=== PATIENT | female | born 1955 | race African-American/Black ===

== ENCOUNTER 2017-12-19 19:31 | Emergency (ER) | payer MEDICARE, MEDICAID ==
[~2017-12-19] VITALS: Ht 170.2 cm; Wt 89.2 kg
[~2017-12-19 19:31] MED LIST: AGGR PO; APIX5TAB PO; ATOR10TA69 PO; BISA-81 PO; CALC0.253 PO; FLUT9.9S NS; FOLI1CAP6 PO; FURO-151 PO; HYDR-4134 PO; KEPP500 PO; LANTUS SUBCUT; LEVO250T2 PO; LISI-604 PO; METO100T16 PO; PHEN100C4 PO; SEVE800T8 PO
[2017-12-19 22:27] LABS: EOSINOPHILS % 6.3 % (0.0-5.0); HEMATOCRIT. 24.3 % (36.0-48.0); HEMOGLOBIN. 8.2 g/dL (12.0-16.0); LYMPHOCYTES % 15.4 % (20.0-50.0); MEAN CORPUSCULAR HEMOGLOBIN 34.5 pg (28.0-32.0); MEAN CORPUSCULAR VOLUME 101.7 fL (81.0-99.0); MEAN PLATELET VOLUME 7.9 fl (7.4-10.4); MONOCYTES % 8.3 % (2.0-8.0); PLATELET 164 x1000/uL (130-400); RED BLOOD CELL COUNT 2.38 mill/uL (4.2-5.4); RED CELL DISTRIBUTION WIDTH 14.8 % (11.6-14.6)
[2017-12-19 22:33] LABS: INR 1.1; PROTHROMBIN TIME 11.9 sec (9.4-11.6)
[2017-12-19] MEDS ORDERED: NITROGLYCERIN 0.4MG/HR PATCH TOP ONE (23:15)
[2017-12-19] MEDS ORDERED: DILTIAZEM HCL 180MG CAPSULE CD 24HR PO ONE (23:15)
[2017-12-20] MEDS ORDERED: ACETAMINOPHEN 325MG TABLET PO ONE
[2017-12-20 00:17] VITALS: BP 153/71
== END 2017-12-20 00:26 | disposition home or self-care (01) ==
LOC: ER 21:13
DX: D64.9 Anemia, unspecified (principal); E78.00 Pure hypercholesterolemia, unspecified; E11.22 Type 2 diabetes mellitus with diabetic chronic kidney disease; N18.6 End stage renal disease; Z99.2 Dependence on renal dialysis; Z86.73 Personal history of transient ischemic attack (TIA), and cerebral infarction without residual deficits; Z79.82 Long term (current) use of aspirin
CPT/HCPCS: 36415; 71045; 80048; 85025; 85610; 86850; 86900; 93005; 99285

== ENCOUNTER 2018-10-15 15:16 | Inpatient (IN) | payer MEDICARE, MEDICAID ==
[~2018-10-15] VITALS: Ht 170.2 cm; Wt 76.7 kg
[2018-10-15] MEDS ORDERED: ONDANSETRON HCL 4MG/2ML INJ IV STA (15:55)
[2018-10-15] MEDS ORDERED: SODIUM CHLORIDE 0.9% 1,000 ML IV ONE (15:55)
[2018-10-15] MEDS ORDERED: MORPHINE SULFATE 4 MG/ML CPJ (NOT FOR IM USE) IV STA (15:55)
[2018-10-15 17:33] LABS: HEMATOCRIT. 35.8 % (36.0-48.0); HEMOGLOBIN. 11.8 g/dL (12.0-16.0); MEAN CORPUSCULAR HEMOGLOBIN 33.7 pg (28.0-32.0); MEAN CORPUSCULAR VOLUME 102.4 fL (81.0-99.0); MEAN PLATELET VOLUME 8.9 fl (7.4-10.4); PLATELET 148 x1000/uL (130-400)
[2018-10-15 17:37] LABS: CHLORIDE 102 mEq/L (98-107)
[2018-10-15 17:38] LABS: INR 1.2; PROTHROMBIN TIME 12.3 sec (9.1-11.1)
[2018-10-15 18:04] LABS: PLATELET ESTIMATE NORMAL
[2018-10-15 22:20] VITALS: BP 128/50
[2018-10-16] VITALS (10 sets, daily range): BP systolic 81–120; BP diastolic 33–55
[2018-10-16] MEDS ORDERED: DEXTROSE 50% WATER 50ML SYRINGE IV PRN (00:45)
[2018-10-16] MEDS: HYDROCODONE/ACETAMINOPHEN 5/325MG TABLET PO PRN ×2 (04:58→18:49)
[2018-10-16] MEDS: BLOOD SUGAR DIAGNOSTIC STRIP TEST SCH ×4 (06:52→21:00)
[2018-10-16 07:14] LABS: MEAN CORPUSCULAR HEMOGLOBIN 34.1 pg (28.0-32.0); MEAN CORPUSCULAR VOLUME 101.8 fL (81.0-99.0); MEAN PLATELET VOLUME 9.3 fl (7.4-10.4); PLATELET 149 x1000/uL (130-400); RED BLOOD CELL COUNT 3.24 mill/uL (4.2-5.4); RED CELL DISTRIBUTION WIDTH 15.1 % (11.6-14.6)
[2018-10-16] MEDS: INSULIN LISPRO 100 UNITS/ML SUBCUT SCH ×4 (07:50→22:12)
[2018-10-16] MEDS ORDERED: SEVELAMER CARBONATE 1600 MG PO SCH (09:00)
[2018-10-16] MEDS ORDERED: LISINOPRIL 20MG TABLET PO SCH (09:00)
[2018-10-16] MEDS ORDERED: MEDICATION NOT ON FORMULARY EA (Calcitriol 1 CAP) PO SCH (09:00)
[2018-10-16] MEDS: HYDRALAZINE HCL 25MG TABLET PO SCH ×2 (09:00→21:00)
[2018-10-16] MEDS ORDERED: MEDICATION NOT ON FORMULARY EA (Apixaban (Eliquis) 5 MG) PO SCH (09:00)
[2018-10-16] MEDS ORDERED: MEDICATION NOT ON FORMULARY EA (Hydralazine Hcl 1 TAB) PO SCH (09:00)
[2018-10-16] MEDS ORDERED: MEDICATION NOT ON FORMULARY EA (Lisinopril 1 TAB) PO SCH (09:00)
[2018-10-16] MEDS: ALBUMIN HUMAN 25GM/100ML (25%) IV SCH ×2 (10:53→10:56)
[2018-10-16] MEDS ORDERED: LEVOFLOXACIN 250MG TABLET PO SCH (11:00)
[2018-10-16] MEDS: CALCITRIOL 0.25MCG CAPSULE PO SCH (11:39)
[2018-10-16] MEDS: PHENYTOIN SODIUM EXTENDED 100MG CAPSULE PO SCH ×2 (11:39→17:52)
[2018-10-16] MEDS: METRONIDAZOLE 500MG TABLET PO SCH ×2 (11:39→23:56)
[2018-10-16] MEDS: SEVELAMER CARBONATE 800 MG TABLET PO SCH ×3 (11:39→18:13)
[2018-10-16] MEDS: APIXABAN 5 MG TABLET PO SCH ×2 (11:40→22:10)
[2018-10-16] MEDS: LEVETIRACETAM 500MG TABLET PO SCH ×2 (11:40→22:10)
[2018-10-16 18:16] LABS: PLATELET ESTIMATE NORMAL
[2018-10-16] MEDS: PIPERACILLIN/TAZOBACTAM 2.25 G in DEXTROSE 5% WATER 50 ML IV SCH (18:47)
[2018-10-16] MEDS: ONDANSETRON HCL 4MG/2ML INJ IV PRN (18:54)
[2018-10-16] MEDS ORDERED: ENOXAPARIN 30MG/0.3ML SYR SUBCUT SCH (21:00)
[2018-10-16] MEDS: ATORVASTATIN CALCIUM 10MG TABLET PO SCH (22:10)
[2018-10-17] VITALS (58 sets, daily range): BP systolic 75–150; BP diastolic 37–102
[2018-10-17] MEDS: PIPERACILLIN/TAZOBACTAM 2.25 G in DEXTROSE 5% WATER 50 ML IV SCH ×2 (04:53→10:18)
[2018-10-17] MEDS: METRONIDAZOLE 500MG TABLET PO SCH ×3 (06:12→21:41)
[2018-10-17 06:52] LABS: HEMATOCRIT. 27.6 % (36.0-48.0); HEMOGLOBIN. 9.4 g/dL (12.0-16.0); MEAN CORPUSCULAR HEMOGLOBIN 34.6 pg (28.0-32.0); MEAN CORPUSCULAR VOLUME 101.1 fL (81.0-99.0); MEAN PLATELET VOLUME 9.4 fl (7.4-10.4); PLATELET 126 x1000/uL (130-400); RED BLOOD CELL COUNT 2.73 mill/uL (4.2-5.4); RED CELL DISTRIBUTION WIDTH 15.1 % (11.6-14.6)
[2018-10-17 07:37] LABS: PHOSPHORUS 4.8 mg/dL (2.5-4.9)
[2018-10-17] MEDS: BLOOD SUGAR DIAGNOSTIC STRIP TEST SCH ×4 (07:40→21:34)
[2018-10-17] MEDS: SEVELAMER CARBONATE 800 MG TABLET PO SCH (08:13)
[2018-10-17] MEDS: INSULIN LISPRO 100 UNITS/ML SUBCUT SCH ×5 (08:18→21:51)
[2018-10-17] MEDS ORDERED: SODIUM CHLORIDE 0.9% 250 ML IV ONE (08:30)
[2018-10-17] MEDS: HYDRALAZINE HCL 25MG TABLET PO SCH (09:00)
[2018-10-17] MEDS ORDERED: VANCOMYCIN 1500MG in DEXTROSE 5% WATER 250ML IV SCH (10:00)
[2018-10-17] MEDS: APIXABAN 5 MG TABLET PO SCH (10:18)
[2018-10-17] MEDS: CALCITRIOL 0.25MCG CAPSULE PO SCH (10:18)
[2018-10-17] MEDS: PHENYTOIN SODIUM EXTENDED 100MG CAPSULE PO SCH ×2 (10:19→17:25)
[2018-10-17] MEDS: LEVETIRACETAM 500MG TABLET PO SCH ×2 (10:19→21:41)
[2018-10-17] MEDS ORDERED: POTASSIUM CHLORIDE 20MEQ/PACKET PO SCH (10:45)
[2018-10-17] MEDS: SODIUM CHLORIDE 0.9% 1,000 ML IV SCH ×2 (11:49→21:52)
[2018-10-17] MEDS ORDERED: NOREPINEPHRINE 8 MG in DEXT 5% WATER 242 ML IV PRN (13:30)
[2018-10-17 14:20] LABS: PLATELET ESTIMATE SLIGHTLY DECREASED
[2018-10-17] MEDS ORDERED: NOREPINEPHRINE 16 MG in DEXT 5% WATER 234 ML IV PRN (17:24)
[2018-10-17] MEDS: PIPERACILLIN/TAZ 2.25G PREMIX 50 ML IV SCH (17:25)
[2018-10-17] MEDS: ATORVASTATIN CALCIUM 10MG TABLET PO SCH (21:41)
[2018-10-18] VITALS (86 sets, daily range): BP systolic 85–162; BP diastolic 38–100
[2018-10-18] MEDS: HYDROCODONE/ACETAMINOPHEN 5/325MG TABLET PO PRN ×2 (02:51→09:31)
[2018-10-18] MEDS: PIPERACILLIN/TAZ 2.25G PREMIX 50 ML IV SCH ×3 (02:56→18:20)
[2018-10-18 05:40] LABS: BASOPHILS % 0.4 % (0.0-2.0); EOSINOPHILS % 14.2 % (0.0-5.0); HEMATOCRIT. 33.7 % (36.0-48.0); HEMOGLOBIN. 11.3 g/dL (12.0-16.0); LYMPHOCYTES % 7.9 % (20.0-50.0); MEAN CORPUSCULAR HEMOGLOBIN 34.1 pg (28.0-32.0); MEAN CORPUSCULAR VOLUME 101.8 fL (81.0-99.0); MEAN PLATELET VOLUME 9.3 fl (7.4-10.4); MONOCYTES % 10.5 % (2.0-8.0); PLATELET 165 x1000/uL (130-400); RED BLOOD CELL COUNT 3.31 mill/uL (4.2-5.4); RED CELL DISTRIBUTION WIDTH 15.1 % (11.6-14.6)
[2018-10-18 05:53] LABS: PHOSPHORUS 5.3 mg/dL (2.5-4.9)
[2018-10-18] MEDS: BLOOD SUGAR DIAGNOSTIC STRIP TEST SCH ×4 (06:37→21:25)
[2018-10-18] MEDS: METRONIDAZOLE 500MG TABLET PO SCH ×2 (06:40→13:08)
[2018-10-18] MEDS: SODIUM CHLORIDE 0.9% 1,000 ML IV SCH ×2 (06:40→18:19)
[2018-10-18] MEDS: INSULIN LISPRO 100 UNITS/ML SUBCUT SCH ×4 (06:49→21:53)
[2018-10-18] MEDS: PHENYTOIN SODIUM EXTENDED 100MG CAPSULE PO SCH ×2 (09:30→18:19)
[2018-10-18] MEDS: LEVETIRACETAM 500MG TABLET PO SCH ×2 (09:30→21:24)
[2018-10-18] MEDS: CALCITRIOL 0.25MCG CAPSULE PO SCH (09:30)
[2018-10-18] MEDS: ONDANSETRON HCL 4MG/2ML INJ IV PRN (09:31)
[2018-10-18] MEDS ORDERED: PHENYTOIN SODIUM 600 MG in SODIUM CHLORIDE 0.9% 100 ML IV SCH (12:00)
[2018-10-18] MEDS: VANCOMYCIN HCL 1000 MG/20 ML ORAL PO SCH ×2 (12:39→18:20)
[2018-10-18 13:07] LABS: T4 FREE 0.79 ng/dL (0.76-1.46)
[2018-10-18 13:18] LABS: FOLIC ACID (FOLATE) SERUM >20 ng/mL ng/mL (>5.38)
[2018-10-18 13:30] LABS: VITAMIN B12 SERUM >2000 pg/mL pg/mL (211-911)
[2018-10-18] MEDS ORDERED: POTASSIUM CHLORIDE INJ 60 MEQ in DEXT 5% WATER 500 ML IV SCH (15:30)
[2018-10-18] MEDS: ATORVASTATIN CALCIUM 10MG TABLET PO SCH (21:24)
[2018-10-19] VITALS (33 sets, daily range): BP systolic 90–163; BP diastolic 39–77
[2018-10-19] MEDS: VANCOMYCIN HCL 1000 MG/20 ML ORAL PO SCH ×4 (00:58→18:00)
[2018-10-19] MEDS: PIPERACILLIN/TAZ 2.25G PREMIX 50 ML IV SCH ×3 (04:22→18:11)
[2018-10-19] MEDS: HYDROCODONE/ACETAMINOPHEN 5/325MG TABLET PO PRN (04:22)
[2018-10-19 05:33] LABS: BASOPHILS % 0.9 % (0.0-2.0); EOSINOPHILS % 13.3 % (0.0-5.0); HEMATOCRIT. 34.2 % (36.0-48.0); HEMOGLOBIN. 11.2 g/dL (12.0-16.0); LYMPHOCYTES % 10.3 % (20.0-50.0); MEAN CORPUSCULAR HEMOGLOBIN 33.6 pg (28.0-32.0); MEAN CORPUSCULAR VOLUME 102.5 fL (81.0-99.0); MEAN PLATELET VOLUME 8.6 fl (7.4-10.4); MONOCYTES % 10.3 % (2.0-8.0); NEUTROPHILS % 65.2 % (40.0-76.0); PLATELET 160 x1000/uL (130-400); RED BLOOD CELL COUNT 3.33 mill/uL (4.2-5.4); RED CELL DISTRIBUTION WIDTH 15.1 % (11.6-14.6)
[2018-10-19 05:36] LABS: CHLORIDE 103 mEq/L (98-107)
[2018-10-19 05:45] LABS: PHOSPHORUS 5.7 mg/dL (2.5-4.9)
[2018-10-19] MEDS: BLOOD SUGAR DIAGNOSTIC STRIP TEST SCH ×4 (07:50→21:12)
[2018-10-19] MEDS: INSULIN LISPRO 100 UNITS/ML SUBCUT SCH ×4 (08:20→21:00)
[2018-10-19] MEDS: METRONIDAZOLE 500MG TABLET PO SCH ×2 (09:00→21:09)
[2018-10-19 09:20] LABS: BG BASE EXCESS -8.4 mmol/L (-2.0-2.0); BG CARBOXYHEMOGLOBIN 0.1 % (0.5-1.5); BG DEOXYHEMOGLOBIN 3.3 % (0.0-5.0); BG FRACTION INSPIRED OXYGEN 28; BG HCO3 ACT 18.3 mmol/L (22.0-26.0); BG METHEMOGLOBIN 0.3 % (0.0-1.5); BG OXYGEN SATURATION 96.7 % (92.0-98.5); BG OXYHEMOGLOBIN 96.3 % (94.0-97.0); BG PCO2 42.1 mmHg (35.0-45.0); BG PH 7.255 (7.350-7.450); BG PO2 106.6 mmHg (75.0-100.0); BG SAMPLE SITE RIGHT RADIAL; BG TOTAL HEMOGLOBIN 11.2 g/dL (12.0-18.0); BG VENT MODE NASAL CANNULA
[2018-10-19] MEDS: LEVETIRACETAM 500MG TABLET PO SCH ×2 (09:23→21:12)
[2018-10-19] MEDS: CALCITRIOL 0.25MCG CAPSULE PO SCH (09:23)
[2018-10-19] MEDS: PHENYTOIN SODIUM EXTENDED 100MG CAPSULE PO SCH ×2 (09:24→17:40)
[2018-10-19] MEDS ORDERED: VANCOMYCIN 1250MG in DEXTROSE 5% WATER 250ML IV NR (15:00)
[2018-10-19] MEDS: SODIUM CHLORIDE 0.9% 1,000 ML IV SCH (17:40)
[2018-10-19] MEDS: ATORVASTATIN CALCIUM 10MG TABLET PO SCH (21:09)
[2018-10-20] VITALS: BP 134/57
[2018-10-20] MEDS: PIPERACILLIN/TAZ 2.25G PREMIX 50 ML IV SCH ×3 (02:00→18:00)
[2018-10-20 04:00] VITALS: BP 161/75
[2018-10-20] MEDS: BLOOD SUGAR DIAGNOSTIC STRIP TEST SCH ×4 (07:10→21:16)
[2018-10-20] MEDS: INSULIN LISPRO 100 UNITS/ML SUBCUT SCH ×4 (07:40→21:00)
[2018-10-20] MEDS: CALCITRIOL 0.25MCG CAPSULE PO SCH (09:00)
[2018-10-20] MEDS: LEVETIRACETAM 500MG TABLET PO SCH ×2 (10:26→21:27)
[2018-10-20] MEDS: METRONIDAZOLE 500MG TABLET PO SCH ×2 (10:26→21:27)
[2018-10-20] MEDS: PHENYTOIN SODIUM EXTENDED 100MG CAPSULE PO SCH ×2 (10:26→18:11)
[2018-10-20 11:36] LABS: BG BASE EXCESS -4.2 mmol/L (-2.0-2.0); BG CARBOXYHEMOGLOBIN 0.7 % (0.5-1.5); BG DEOXYHEMOGLOBIN 6.8 % (0.0-5.0); BG FRACTION INSPIRED OXYGEN 21; BG HCO3 ACT 20.8 mmol/L (22.0-26.0); BG METHEMOGLOBIN 0.1 % (0.0-1.5); BG OXYGEN SATURATION 93.1 % (92.0-98.5); BG OXYHEMOGLOBIN 92.4 % (94.0-97.0); BG PCO2 38.1 mmHg (35.0-45.0); BG PH 7.356 (7.350-7.450); BG PO2 72.8 mmHg (75.0-100.0); BG SAMPLE SITE RIGHT RADIAL; BG VENT MODE ROOM AIR
[2018-10-20 11:46] VITALS: BP 167/87
[2018-10-20 12:37] VITALS: BP 149/78
[2018-10-20 16:00] VITALS: BP_SYST 138; BP_SYST 150; BP_DIAS 78; BP_DIAS 83
[2018-10-20 20:00] VITALS: BP 153/78
[2018-10-20] MEDS: ATORVASTATIN CALCIUM 10MG TABLET PO SCH (21:27)
[2018-10-20 23:02] LABS: EOSINOPHILS % 11.4 % (0.0-5.0); HEMATOCRIT. 30.1 % (36.0-48.0); HEMOGLOBIN. 10.1 g/dL (12.0-16.0); LYMPHOCYTES % 12.1 % (20.0-50.0); MEAN CORPUSCULAR VOLUME 101.1 fL (81.0-99.0); MEAN PLATELET VOLUME 7.7 fl (7.4-10.4); MONOCYTES % 9.7 % (2.0-8.0); NEUTROPHILS % 65.8 % (40.0-76.0); PLATELET 203 x1000/uL (130-400); RED BLOOD CELL COUNT 2.98 mill/uL (4.2-5.4); RED CELL DISTRIBUTION WIDTH 14.7 % (11.6-14.6)
[2018-10-20 23:16] LABS: PHOSPHORUS 3.6 mg/dL (2.5-4.9)
[2018-10-21] VITALS: BP 150/71
[2018-10-21] MEDS: VANCOMYCIN HCL 1000 MG/20 ML ORAL PO SCH ×4 (00:22→17:58)
[2018-10-21] MEDS: HYDROCODONE/ACETAMINOPHEN 5/325MG TABLET PO PRN (00:24)
[2018-10-21] MEDS: PIPERACILLIN/TAZ 2.25G PREMIX 50 ML IV SCH ×3 (03:13→17:52)
[2018-10-21 04:00] VITALS: BP 132/66
[2018-10-21 04:24] LABS: OVA & PARASITE EXAM Final report (.)
[2018-10-21] MEDS: ONDANSETRON HCL 4MG/2ML INJ IV PRN (05:25)
[2018-10-21] MEDS: BLOOD SUGAR DIAGNOSTIC STRIP TEST SCH ×4 (06:35→20:52)
[2018-10-21] MEDS: INSULIN LISPRO 100 UNITS/ML SUBCUT SCH ×4 (06:36→20:51)
[2018-10-21 06:51] LABS: HEMATOCRIT. 31.4 % (36.0-48.0); HEMOGLOBIN. 10.5 g/dL (12.0-16.0); LYMPHOCYTES % 13.7 % (20.0-50.0); MEAN CORPUSCULAR VOLUME 101.4 fL (81.0-99.0); MEAN PLATELET VOLUME 8.2 fl (7.4-10.4); MONOCYTES % 9.7 % (2.0-8.0); NEUTROPHILS % 64.6 % (40.0-76.0); PLATELET 218 x1000/uL (130-400); RED CELL DISTRIBUTION WIDTH 14.6 % (11.6-14.6)
[2018-10-21 07:06] LABS: PHOSPHORUS 3.7 mg/dL (2.5-4.9)
[2018-10-21 08:00] VITALS: BP 126/62
[2018-10-21] MEDS: PHENYTOIN SODIUM EXTENDED 100MG CAPSULE PO SCH ×2 (09:15→17:52)
[2018-10-21] MEDS: CALCITRIOL 0.25MCG CAPSULE PO SCH (09:15)
[2018-10-21] MEDS: METRONIDAZOLE 500MG TABLET PO SCH ×2 (09:16→20:43)
[2018-10-21] MEDS: LEVETIRACETAM 500MG TABLET PO SCH ×2 (09:16→20:43)
[2018-10-21 11:53] VITALS: BP 154/76
[2018-10-21 16:00] VITALS: BP 117/60
[2018-10-21 20:00] VITALS: BP 135/62
[2018-10-21] MEDS: ATORVASTATIN CALCIUM 10MG TABLET PO SCH (20:43)
[2018-10-21] MEDS: ACETAMINOPHEN 325MG TABLET PO PRN (20:43)
[2018-10-22] VITALS: BP 153/75
[2018-10-22] MEDS: VANCOMYCIN HCL 1000 MG/20 ML ORAL PO SCH ×3 (00:09→11:38)
[2018-10-22] MEDS: PIPERACILLIN/TAZ 2.25G PREMIX 50 ML IV SCH ×2 (02:03→10:12)
[2018-10-22 04:00] VITALS: BP 129/57
[2018-10-22] MEDS: BLOOD SUGAR DIAGNOSTIC STRIP TEST SCH ×3 (07:10→17:10)
[2018-10-22] MEDS: INSULIN LISPRO 100 UNITS/ML SUBCUT SCH ×3 (07:40→17:37)
[2018-10-22 08:00] VITALS: BP 143/58
[2018-10-22 08:10] LABS: BASOPHILS % 1.3 % (0.0-2.0); EOSINOPHILS % 11.2 % (0.0-5.0); HEMATOCRIT. 30.1 % (36.0-48.0); HEMOGLOBIN. 10.2 g/dL (12.0-16.0); LYMPHOCYTES % 17.1 % (20.0-50.0); MEAN CORPUSCULAR HEMOGLOBIN 34.5 pg (28.0-32.0); MEAN CORPUSCULAR VOLUME 101.5 fL (81.0-99.0); MEAN PLATELET VOLUME 7.6 fl (7.4-10.4); MONOCYTES % 10.5 % (2.0-8.0); NEUTROPHILS % 59.9 % (40.0-76.0); PLATELET 215 x1000/uL (130-400); RED BLOOD CELL COUNT 2.97 mill/uL (4.2-5.4); RED CELL DISTRIBUTION WIDTH 14.7 % (11.6-14.6)
[2018-10-22] MEDS: METRONIDAZOLE 500MG TABLET PO SCH (08:45)
[2018-10-22] MEDS: PHENYTOIN SODIUM EXTENDED 100MG CAPSULE PO SCH ×2 (08:45→17:37)
[2018-10-22] MEDS: LEVETIRACETAM 500MG TABLET PO SCH (08:45)
[2018-10-22 08:54] LABS: PHOSPHORUS 2.9 mg/dL (2.5-4.9)
[2018-10-22] MEDS: CALCITRIOL 0.25MCG CAPSULE PO SCH (09:14)
[2018-10-22 12:00] VITALS: BP 136/58
[2018-10-22 14:42] VITALS: BP 136/58
[2018-10-22 16:00] VITALS: BP 159/76
[2018-10-22] MEDS: ACETAMINOPHEN 325MG TABLET PO PRN (17:37)
== END 2018-10-22 19:05 | disposition home health service (06) | DRG 871 ==
LOC: ER 15:16 → 6WST 18:00 → EDBEDREQTM 18:03 → EDBEDREQ 18:03 → ENRESERV 21:19 → 3WST 10-16 13:50 → CVICU 10-17 13:10 → 8WST 10-19 14:01
PROVIDERS: ADMIT Internal Medicine Nephrology; ATTEND Internal Medicine Nephrology
PROC: 5A1D70Z Performance of Urinary Filtration, Intermittent, Less than 6 Hours Per Day (ICD-10-PCS; 2018-10-16)
PROC: 5A1D70Z Performance of Urinary Filtration, Intermittent, Less than 6 Hours Per Day (ICD-10-PCS; 2018-10-19)
PROC: 5A1D70Z Performance of Urinary Filtration, Intermittent, Less than 6 Hours Per Day (ICD-10-PCS; 2018-10-21)
PROC: 4A00X4Z Measurement of Central Nervous Electrical Activity, External Approach (ICD-10-PCS; principal; 2018-10-22)
DX: A41.9 Sepsis, unspecified organism (principal); N18.6 End stage renal disease; E43 Unspecified severe protein-calorie malnutrition; G92 Toxic encephalopathy; A04.71 Enterocolitis due to Clostridium difficile, recurrent; E87.2 Acidosis; I12.0 Hypertensive chronic kidney disease with stage 5 chronic kidney disease or end stage renal disease; N25.81 Secondary hyperparathyroidism of renal origin; N17.9 Acute kidney failure, unspecified; E86.0 Dehydration; D53.9 Nutritional anemia, unspecified; D63.1 Anemia in chronic kidney disease; R65.20 Severe sepsis without septic shock; D69.6 Thrombocytopenia, unspecified; D25.9 Leiomyoma of uterus, unspecified; E11.22 Type 2 diabetes mellitus with diabetic chronic kidney disease; G43.909 Migraine, unspecified, not intractable, without status migrainosus; I95.9 Hypotension, unspecified; E11.43 Type 2 diabetes mellitus with diabetic autonomic (poly)neuropathy; E87.6 Hypokalemia; E78.00 Pure hypercholesterolemia, unspecified; E78.5 Hyperlipidemia, unspecified; K31.84 Gastroparesis; G40.909 Epilepsy, unspecified, not intractable, without status epilepticus; Z99.2 Dependence on renal dialysis; Z82.49 Family history of ischemic heart disease and other diseases of the circulatory system; Z83.3 Family history of diabetes mellitus; Z86.73 Personal history of transient ischemic attack (TIA), and cerebral infarction without residual deficits; Z68.26 Body mass index [BMI] 26.0-26.9, adult; Z79.82 Long term (current) use of aspirin; Z79.899 Other long term (current) drug therapy
CPT/HCPCS: 36415; 36600; 70551; 71045; 74176; 80048; 80185; 80202; 82140; 82375; 82607; 82746; 82805; 82962; 83036; 83735; 84100; 84134; 84439; 84443; 84481; 87015; 87045; 87177; 87209; 87427; 87449; 87493; 92610; 93005; 93306; 93970; 96361; 96374; 96375; 97162; 99285; C1893; J1165; J1815; J2270; J2405; J2543; J3370; J3480; J3490; J7030; J7050; J7060; P9047; A4315

== ENCOUNTER 2018-12-10 12:30 | Inpatient (IN) | payer MEDICARE, MEDICAID ==
[~2018-12-10] VITALS: Ht 167.6 cm; Wt 80.7 kg
[2018-12-10] MEDS ORDERED: PIPERACILLIN/TAZ 3.375G PREMIX 50 ML IV ONE (13:15)
[2018-12-10] MEDS ORDERED: VANCOMYCIN 1 G PREMIX 200 ML IV ONE (13:15)
[2018-12-10] MEDS ORDERED: SODIUM CHLORIDE 0.9% 1000ML BAG (SEPSIS BOLUS) IV ONE (13:15)
[2018-12-10] MEDS ORDERED: ACETAMINOPHEN 325MG TABLET PO ONE (13:15)
[2018-12-10] MEDS ORDERED: METRONIDAZOLE 500 MG PREMIX 100 ML IV ONE (13:15)
[2018-12-10] MEDS ORDERED: NOREPINEPHRINE 4 MG in DEXT 5% WATER 246 ML IV ONE ×3 (13:45→23:15)
[2018-12-10] MEDS ORDERED: NOREPINEPHRINE 4MG/250ML PMX 250 ML IV ONE ×2 (13:53→19:45)
[2018-12-10 14:03] LABS: HEMATOCRIT. 37.4 % (36.0-48.0); MEAN CORPUSCULAR HEMOGLOBIN 31.6 pg (28.0-32.0); MEAN CORPUSCULAR VOLUME 98.2 fL (81.0-99.0); MEAN PLATELET VOLUME 10.3 fl (7.4-10.4); PLATELET 208 x1000/uL (130-400); RED BLOOD CELL COUNT 3.81 mill/uL (4.2-5.4); RED CELL DISTRIBUTION WIDTH 16.2 % (11.6-14.6)
[2018-12-10 14:07] LABS: CHLORIDE 97 mEq/L (98-107)
[2018-12-10 14:32] LABS: INR 1.3; PARTIAL THROMBOPLASTIN TIME 34.1 sec (23.4-31.0); PROTHROMBIN TIME 13.1 sec (9.1-11.1)
[2018-12-10] MEDS ORDERED: SODIUM CHLORIDE 0.45% 1,000 ML IV SCH (16:29)
[2018-12-10] MEDS ORDERED: HYDRALAZINE 20MG/ML VIAL IV PRN (16:30)
[2018-12-10] MEDS ORDERED: LEVOFLOXACIN 500MG PREMIX 100 ML IV SCH ×2 (16:30→17:15)
[2018-12-10] MEDS ORDERED: HYDROCODONE/ACETAMINOPHEN 10/325MG TABLET PO PRN (16:30)
[2018-12-10] MEDS ORDERED: DIPHENHYDRAMINE 50MG/ML VIAL IV PRN (16:30)
[2018-12-10] MEDS ORDERED: CLONIDINE 0.1MG TABLET PO PRN (16:30)
[2018-12-10] MEDS ORDERED: GUAIFENESIN 200MG/10ML SUGAR FREE UDC PO PRN (16:30)
[2018-12-10] MEDS ORDERED: MAGNESIUM/ALUMINUM HYDROXIDE/SIMETHICONE 30ML UDC PO PRN (16:30)
[2018-12-10] MEDS ORDERED: DOCUSATE SODIUM 100MG CAPSULE PO PRN (16:30)
[2018-12-10] MEDS ORDERED: IPRATROPIUM/ALBUTEROL 0.5-3(2.5)MG/3ML NEB INH PRN (16:30)
[2018-12-10] MEDS ORDERED: LORAZEPAM 2MG/ML CPJ IV PRN (16:30)
[2018-12-10 16:45] LABS: PLATELET ESTIMATE NORMAL
[2018-12-10] MEDS ORDERED: IPRATROPIUM/ALBUTEROL 0.5-3(2.5)MG/3ML NEB HHN PRN (17:00)
[2018-12-10] MEDS ORDERED: NON FORMULARY PATIENT HOME MED XX SCH (17:15)
[2018-12-10] MEDS ORDERED: METRONIDAZOLE 500 MG PREMIX 100 ML IV SCH (22:00)
[2018-12-10] MEDS: ONDANSETRON HCL 4MG/2ML INJ IV PRN (22:02)
[2018-12-10 23:00] LABS: CREATINE KINASE MB FRACTION 4.3 ng/mL (0.5-3.6)
[2018-12-11] VITALS (97 sets, daily range): BP systolic 76–171; BP diastolic 32–121
[2018-12-11] MEDS: NOREPINEPHRINE 8 MG in DEXT 5% WATER 242 ML IV PRN ×2 (02:50→23:31)
[2018-12-11] MEDS: SODIUM CHLORIDE 0.9% INJ 3ML FLUSH IVF SCH ×3 (05:42→20:57)
[2018-12-11] MEDS: PANTOPRAZOLE 40MG DR TABLET PO SCH (05:42)
[2018-12-11 05:51] LABS: CHLORIDE 96 mEq/L (98-107)
[2018-12-11 05:55] LABS: HEMATOCRIT. 32.6 % (36.0-48.0); HEMOGLOBIN. 10.7 g/dL (12.0-16.0); MEAN CORPUSCULAR HEMOGLOBIN 31.4 pg (28.0-32.0); MEAN CORPUSCULAR VOLUME 95.7 fL (81.0-99.0); MEAN PLATELET VOLUME 9.2 fl (7.4-10.4); PLATELET 186 x1000/uL (130-400); RED BLOOD CELL COUNT 3.41 mill/uL (4.2-5.4); RED CELL DISTRIBUTION WIDTH 16.2 % (11.6-14.6)
[2018-12-11 06:02] LABS: CREATINE KINASE MB FRACTION 4.6 ng/mL (0.5-3.6)
[2018-12-11 06:04] LABS: LDL CHOLESTEROL 20 mg/dL (5-100)
[2018-12-11 06:05] LABS: CREATINE KINASE 571 IU/L (26-192)
[2018-12-11 06:06] LABS: HDL CHOLESTEROL 10 mg/dL (40-59)
[2018-12-11] MEDS: ENOXAPARIN 30MG/0.3ML SYR SUBCUT SCH (08:37)
[2018-12-11] MEDS: ASPIRIN 81MG EC TABLET PO SCH (08:37)
[2018-12-11] MEDS: HYDROMORPHONE HCL/PF 2MG/ML CPJ IV PRN ×2 (08:50→21:13)
[2018-12-11 10:09] LABS: PLATELET ESTIMATE NORMAL
[2018-12-11 13:39] LABS: AMYLASE 18 IU/L (25-115)
[2018-12-11] MEDS: PHENYTOIN SODIUM EXTENDED 100MG CAPSULE PO SCH (20:56)
[2018-12-11] MEDS: FIDAXOMICIN 200MG TABLET PO SCH (20:56)
[2018-12-11] MEDS: LEVETIRACETAM 500MG TABLET PO SCH (20:57)
[2018-12-11] MEDS: SODIUM CHLORIDE 0.9% 1,000 ML IV SCH (20:57)
[2018-12-12] VITALS (89 sets, daily range): BP systolic 48–130; BP diastolic 27–72
[2018-12-12] MEDS: PHENYTOIN SODIUM EXTENDED 100MG CAPSULE PO SCH ×3 (05:59→22:05)
[2018-12-12] MEDS: SODIUM CHLORIDE 0.9% INJ 3ML FLUSH IVF SCH ×3 (05:59→22:00)
[2018-12-12] MEDS: PANTOPRAZOLE 40MG DR TABLET PO SCH (05:59)
[2018-12-12] MEDS: SODIUM CHLORIDE 0.9% 1,000 ML IV SCH ×2 (05:59→18:18)
[2018-12-12 07:03] LABS: HEMATOCRIT. 29.5 % (36.0-48.0); HEMOGLOBIN. 9.8 g/dL (12.0-16.0); MEAN CORPUSCULAR HEMOGLOBIN 31.9 pg (28.0-32.0); MEAN CORPUSCULAR VOLUME 96.4 fL (81.0-99.0); MEAN PLATELET VOLUME 9.7 fl (7.4-10.4); PLATELET 180 x1000/uL (130-400); RED BLOOD CELL COUNT 3.06 mill/uL (4.2-5.4); RED CELL DISTRIBUTION WIDTH 15.8 % (11.6-14.6)
[2018-12-12 07:27] LABS: PHOSPHORUS 5.2 mg/dL (2.5-4.9)
[2018-12-12] MEDS: IPRATROPIUM/ALBUTEROL 0.5-3(2.5)MG/3ML NEB HHN SCH ×3 (08:51→21:17)
[2018-12-12] MEDS: FIDAXOMICIN 200MG TABLET PO SCH ×2 (09:53→20:24)
[2018-12-12] MEDS: ASPIRIN 81MG EC TABLET PO SCH (09:53)
[2018-12-12] MEDS: LEVETIRACETAM 500MG TABLET PO SCH ×2 (09:53→20:24)
[2018-12-12] MEDS: ENOXAPARIN 30MG/0.3ML SYR SUBCUT SCH (09:53)
[2018-12-12 14:00] LABS: PLATELET ESTIMATE NORMAL
[2018-12-12] MEDS: NOREPINEPHRINE 8 MG in DEXT 5% WATER 242 ML IV PRN (19:59)
[2018-12-12] MEDS: HYDROMORPHONE HCL/PF 2MG/ML CPJ IV PRN ×2 (20:24→23:28)
[2018-12-12] MEDS: APIXABAN 5 MG TABLET PO SCH (20:24)
[2018-12-12] MEDS ORDERED: EPOETIN ALFA 4000UNITS/ML VIAL SUBCUT SCH (21:00)
[2018-12-12] MEDS: ACETAMINOPHEN 325MG TABLET PO PRN (23:28)
[2018-12-13] VITALS (89 sets, daily range): BP systolic 89–152; BP diastolic 39–75
[2018-12-13] MEDS: IPRATROPIUM/ALBUTEROL 0.5-3(2.5)MG/3ML NEB HHN SCH ×4 (02:00→20:37)
[2018-12-13] MEDS: PHENYTOIN SODIUM EXTENDED 100MG CAPSULE PO SCH ×3 (05:45→21:28)
[2018-12-13] MEDS: PANTOPRAZOLE 40MG DR TABLET PO SCH (05:45)
[2018-12-13] MEDS: SODIUM CHLORIDE 0.9% INJ 3ML FLUSH IVF SCH ×3 (05:45→21:28)
[2018-12-13] MEDS: ACETAMINOPHEN 325MG TABLET PO PRN (06:17)
[2018-12-13] MEDS: HYDROMORPHONE HCL/PF 2MG/ML CPJ IV PRN (06:18)
[2018-12-13 07:08] LABS: HEMATOCRIT. 33.6 % (36.0-48.0); HEMOGLOBIN. 10.9 g/dL (12.0-16.0); MEAN CORPUSCULAR HEMOGLOBIN 31.2 pg (28.0-32.0); MEAN CORPUSCULAR VOLUME 96.2 fL (81.0-99.0); MEAN PLATELET VOLUME 8.9 fl (7.4-10.4); PLATELET 194 x1000/uL (130-400); RED BLOOD CELL COUNT 3.49 mill/uL (4.2-5.4); RED CELL DISTRIBUTION WIDTH 16.1 % (11.6-14.6)
[2018-12-13 08:15] LABS: PLATELET ESTIMATE NORMAL
[2018-12-13] MEDS: APIXABAN 5 MG TABLET PO SCH ×2 (09:41→21:28)
[2018-12-13] MEDS: LEVETIRACETAM 500MG TABLET PO SCH ×2 (09:41→21:28)
[2018-12-13] MEDS: FIDAXOMICIN 200MG TABLET PO SCH ×2 (09:41→21:28)
[2018-12-13] MEDS: ASPIRIN 81MG EC TABLET PO SCH (09:42)
[2018-12-13] MEDS ORDERED: VANCOMYCIN 1500MG in DEXTROSE 5% WATER 250ML IV SCH (12:00)
[2018-12-13] MEDS: SODIUM CHLORIDE 0.9% 1,000 ML IV SCH (13:37)
[2018-12-13] MEDS ORDERED: HYDROMORPHONE HCL/PF 2MG/ML CPJ IV PRN (22:30)
[2018-12-14] VITALS (67 sets, daily range): BP systolic 103–146; BP diastolic 42–70
[2018-12-14] MEDS ORDERED: HYDROCODONE/ACETAMINOPHEN 10/325MG TABLET PO PRN (00:30)
[2018-12-14] MEDS: IPRATROPIUM/ALBUTEROL 0.5-3(2.5)MG/3ML NEB HHN SCH ×4 (01:59→20:39)
[2018-12-14] MEDS: SODIUM CHLORIDE 0.9% INJ 3ML FLUSH IVF SCH ×3 (06:00→21:35)
[2018-12-14 06:12] LABS: HEMATOCRIT. 27.3 % (36.0-48.0); HEMOGLOBIN. 8.8 g/dL (12.0-16.0); MEAN CORPUSCULAR HEMOGLOBIN 31.1 pg (28.0-32.0); MEAN CORPUSCULAR VOLUME 96.5 fL (81.0-99.0); MEAN PLATELET VOLUME 8.4 fl (7.4-10.4); PLATELET 175 x1000/uL (130-400); RED BLOOD CELL COUNT 2.83 mill/uL (4.2-5.4); RED CELL DISTRIBUTION WIDTH 16.5 % (11.6-14.6)
[2018-12-14 06:17] LABS: PHOSPHORUS 4.2 mg/dL (2.5-4.9)
[2018-12-14] MEDS: PHENYTOIN SODIUM EXTENDED 100MG CAPSULE PO SCH ×3 (06:33→21:35)
[2018-12-14] MEDS: SODIUM CHLORIDE 0.9% 1,000 ML IV SCH (06:33)
[2018-12-14] MEDS: PANTOPRAZOLE 40MG DR TABLET PO SCH (06:33)
[2018-12-14 07:26] LABS: NUCLEATED RED BLOOD CELLS 1 /100 WBC; PLATELET ESTIMATE NORMAL
[2018-12-14] MEDS: APIXABAN 5 MG TABLET PO SCH (11:03)
[2018-12-14] MEDS: LEVETIRACETAM 500MG TABLET PO SCH ×2 (11:03→20:39)
[2018-12-14] MEDS: FIDAXOMICIN 200MG TABLET PO SCH ×2 (11:03→20:39)
[2018-12-14] MEDS: ASPIRIN 81MG EC TABLET PO SCH (11:03)
[2018-12-14 12:51] LABS: HEMOGLOBIN 9.9 g/dL (12.0-16.0); MEAN CORPUSCULAR HEMOGLOBIN 31.8 pg (28.0-32.0); MEAN CORPUSCULAR VOLUME 96.1 fL (81.0-99.0); PLATELET 166 x1000/uL (130-400); RED BLOOD CELL COUNT 3.12 mill/uL (4.2-5.4); RED CELL DISTRIBUTION WIDTH 16.3 % (11.6-14.6)
[2018-12-14] MEDS: EPOETIN ALFA 10000UNITS/ML VIAL SUBCUT SCH (21:35)
[2018-12-15] VITALS (16 sets, daily range): BP systolic 105–150; BP diastolic 40–63
[2018-12-15] MEDS: IPRATROPIUM/ALBUTEROL 0.5-3(2.5)MG/3ML NEB HHN SCH ×4 (01:25→21:02)
[2018-12-15] MEDS: SODIUM CHLORIDE 0.9% INJ 3ML FLUSH IVF SCH ×3 (06:06→21:40)
[2018-12-15] MEDS: PANTOPRAZOLE 40MG DR TABLET PO SCH (06:06)
[2018-12-15] MEDS: PHENYTOIN SODIUM EXTENDED 100MG CAPSULE PO SCH ×3 (06:06→21:38)
[2018-12-15 07:09] LABS: HEMATOCRIT. 29.8 % (36.0-48.0); HEMOGLOBIN. 9.6 g/dL (12.0-16.0); MEAN CORPUSCULAR HEMOGLOBIN 31.3 pg (28.0-32.0); MEAN CORPUSCULAR VOLUME 97.4 fL (81.0-99.0); MEAN PLATELET VOLUME 8.2 fl (7.4-10.4); PLATELET 179 x1000/uL (130-400); RED BLOOD CELL COUNT 3.06 mill/uL (4.2-5.4); RED CELL DISTRIBUTION WIDTH 16.6 % (11.6-14.6)
[2018-12-15] MEDS: ASPIRIN 81MG EC TABLET PO SCH (09:35)
[2018-12-15] MEDS: LEVETIRACETAM 500MG TABLET PO SCH ×2 (09:35→21:38)
[2018-12-15] MEDS: FIDAXOMICIN 200MG TABLET PO SCH ×2 (10:48→21:37)
[2018-12-15] MEDS ORDERED: APIXABAN 5 MG TABLET PO SCH (11:00)
[2018-12-15 23:25] LABS: PLATELET ESTIMATE NORMAL
[2018-12-16] VITALS (12 sets, daily range): BP systolic 115–170; BP diastolic 45–82
[2018-12-16] MEDS: IPRATROPIUM/ALBUTEROL 0.5-3(2.5)MG/3ML NEB HHN SCH ×4 (01:02→22:08)
[2018-12-16 06:05] LABS: BASOPHILS % 0.6 % (0.0-2.0); EOSINOPHILS % 4.1 % (0.0-5.0); HEMATOCRIT. 29.3 % (36.0-48.0); HEMOGLOBIN. 9.7 g/dL (12.0-16.0); LYMPHOCYTES % 8.5 % (20.0-50.0); MEAN CORPUSCULAR HEMOGLOBIN 31.6 pg (28.0-32.0); MEAN CORPUSCULAR VOLUME 95.9 fL (81.0-99.0); MEAN PLATELET VOLUME 7.4 fl (7.4-10.4); MONOCYTES % 6.3 % (2.0-8.0); NEUTROPHILS % 80.5 % (40.0-76.0); PLATELET 215 x1000/uL (130-400); RED BLOOD CELL COUNT 3.05 mill/uL (4.2-5.4); RED CELL DISTRIBUTION WIDTH 16.7 % (11.6-14.6)
[2018-12-16] MEDS: PHENYTOIN SODIUM EXTENDED 100MG CAPSULE PO SCH ×3 (06:37→23:21)
[2018-12-16] MEDS: SODIUM CHLORIDE 0.9% INJ 3ML FLUSH IVF SCH ×3 (06:38→21:54)
[2018-12-16] MEDS: PANTOPRAZOLE 40MG DR TABLET PO SCH (06:38)
[2018-12-16 08:28] LABS: PHOSPHORUS 4.6 mg/dL (2.5-4.9)
[2018-12-16] MEDS: FIDAXOMICIN 200MG TABLET PO SCH ×2 (12:31→21:47)
[2018-12-16] MEDS: ASPIRIN 81MG EC TABLET PO SCH (12:31)
[2018-12-16] MEDS: LEVETIRACETAM 500MG TABLET PO SCH ×2 (12:31→21:47)
[2018-12-16] MEDS: ONDANSETRON HCL 4MG/2ML INJ IV PRN (12:38)
[2018-12-16] MEDS: EPOETIN ALFA 10000UNITS/ML VIAL SUBCUT SCH (21:54)
[2018-12-17 00:50] VITALS: BP 134/58
[2018-12-17] MEDS: IPRATROPIUM/ALBUTEROL 0.5-3(2.5)MG/3ML NEB HHN SCH (02:56)
[2018-12-17 03:00] VITALS: BP 138/62
[2018-12-17 03:04] VITALS: BP 148/55
== END 2018-12-17 03:27 | disposition short-term general hospital (02) | DRG 871 ==
LOC: ER 13:45 → MICUSO 15:22 → EDBEDREQ 15:26 → EDBEDREQTM 15:26 → CANRESERV 20:57 → ENRESERV 20:57 → 3WST 12-14 22:20
PROVIDERS: ADMIT Internal Medicine; ATTEND Internal Medicine
PROC: 02HV33Z Insertion of Infusion Device into Superior Vena Cava, Percutaneous Approach (ICD-10-PCS; principal; 2018-12-10)
PROC: B548ZZA Ultrasonography of Superior Vena Cava, Guidance (ICD-10-PCS; 2018-12-10)
PROC: 5A1D70Z Performance of Urinary Filtration, Intermittent, Less than 6 Hours Per Day (ICD-10-PCS; 2018-12-12)
PROC: 5A1D70Z Performance of Urinary Filtration, Intermittent, Less than 6 Hours Per Day (ICD-10-PCS; 2018-12-14)
PROC: 5A1D70Z Performance of Urinary Filtration, Intermittent, Less than 6 Hours Per Day (ICD-10-PCS; 2018-12-16)
DX: A41.9 Sepsis, unspecified organism (principal); G93.41 Metabolic encephalopathy; E43 Unspecified severe protein-calorie malnutrition; J96.01 Acute respiratory failure with hypoxia; N18.6 End stage renal disease; R65.21 Severe sepsis with septic shock; A04.71 Enterocolitis due to Clostridium difficile, recurrent; I13.2 Hypertensive heart and chronic kidney disease with heart failure and with stage 5 chronic kidney disease, or end stage renal disease; N25.81 Secondary hyperparathyroidism of renal origin; D68.59 Other primary thrombophilia; K51.00 Ulcerative (chronic) pancolitis without complications; D63.1 Anemia in chronic kidney disease; E86.0 Dehydration; I50.9 Heart failure, unspecified; N20.0 Calculus of kidney; N28.1 Cyst of kidney, acquired; G43.909 Migraine, unspecified, not intractable, without status migrainosus; E11.22 Type 2 diabetes mellitus with diabetic chronic kidney disease; E78.00 Pure hypercholesterolemia, unspecified; E78.1 Pure hyperglyceridemia; E78.5 Hyperlipidemia, unspecified; F17.200 Nicotine dependence, unspecified, uncomplicated; G40.909 Epilepsy, unspecified, not intractable, without status epilepticus; I25.10 Atherosclerotic heart disease of native coronary artery without angina pectoris; I45.81 Long QT syndrome; Z79.01 Long term (current) use of anticoagulants; Z79.899 Other long term (current) drug therapy; Z82.3 Family history of stroke; Z83.3 Family history of diabetes mellitus; Z86.73 Personal history of transient ischemic attack (TIA), and cerebral infarction without residual deficits; Z99.2 Dependence on renal dialysis; Z79.2 Long term (current) use of antibiotics; Z79.82 Long term (current) use of aspirin; Z68.28 Body mass index [BMI] 28.0-28.9, adult
CPT/HCPCS: 36415; 36569; 71045; 74176; 76937; 80048; 80061; 80185; 80202; 82150; 82550; 82553; 83036; 83605; 83735; 84100; 84134; 84145; 84443; 84484; 85027; 86850; 86900; 87015; 87045; 87427; 87449; 87493; 92610; 93005; 94640; 96365; 96366; 96375; 99291; A6261; C1725; J0885; J1170; J1650; J2405; J2543; J3370; J3490; J7030; J7040; J7050; J7060; J7620

== ENCOUNTER 2021-09-21 11:52 | Emergency (ER) | payer MEDICARE, MEDICAID ==
[~2021-09-21] VITALS: Ht 167.6 cm; Wt 55.0 kg
[~2021-09-21 11:52] MED LIST changes: -AGGR PO; +B50 PO; -LEVO250T2 PO; +LIDO700A30 TOP; -LISI-604 PO; -METO100T16 PO; +TOPUD PO; +TRAM50TA3 MT; +TRAM50TA3 PO
[2021-09-21 12:42] LABS: BASOPHILS % 0.8 % (0.0-2.0); EOSINOPHILS % 5.5 % (0.0-5.0); HEMATOCRIT. 34.8 % (36.0-48.0); HEMOGLOBIN. 11.1 g/dL (12.0-16.0); MEAN CORPUSCULAR HEMOGLOBIN 28.2 pg (28.0-32.0); MEAN CORPUSCULAR VOLUME 88.5 fL (81.0-99.0); MEAN PLATELET VOLUME 8.3 fl (7.4-10.4); MONOCYTES % 9.7 % (2.0-8.0); PLATELET 143 x1000/uL (130-400); RED BLOOD CELL COUNT 3.93 mill/uL (4.2-5.4); RED CELL DISTRIBUTION WIDTH 17.5 % (11.6-14.6)
[2021-09-21 12:44] LABS: CHLORIDE 101 mEq/L (98-107)
[2021-09-21] MEDS ORDERED: ASPIRIN 325MG TABLET PO ONE (12:45)
[2021-09-21] MEDS: METOPROLOL TARTRATE 25MG TABLET PO SCH ×2 (17:45→21:00)
[2021-09-21 18:15] VITALS: BP 145/70
[2021-09-21] MEDS ORDERED: ATORVASTATIN CALCIUM 40MG TABLET PO SCH (21:00)
[2021-09-21] MEDS ORDERED: ATORVASTATIN CALCIUM 10MG TABLET PO SCH (22:30)
== END 2021-09-22 00:59 | disposition left against medical advice (07) ==
LOC: ER 11:52 → EDBEDREQ 20:35 → EDBEDREQTM 20:35 → CANRESERV 23:22 → ENRESERV 23:22 → ER 09-22 00:59 → CANBEDREQ 09-22 01:16
DX: I48.92 Unspecified atrial flutter (principal); I13.2 Hypertensive heart and chronic kidney disease with heart failure and with stage 5 chronic kidney disease, or end stage renal disease; N18.6 End stage renal disease; I50.9 Heart failure, unspecified; R73.9 Hyperglycemia, unspecified; E21.1 Secondary hyperparathyroidism, not elsewhere classified; Z99.2 Dependence on renal dialysis; Z86.73 Personal history of transient ischemic attack (TIA), and cerebral infarction without residual deficits
CPT/HCPCS: 36415; 80053; 82962; 84484; 85025; 93005; 99285

== ENCOUNTER 2024-06-07 08:31 | Inpatient (IN) | payer MEDICARE, MEDICAID ==
[~2024-06-07] VITALS: Ht 170.2 cm; Wt 74.8 kg
[~2024-06-07 08:31] MED LIST changes: -HYDR-4134 PO; +HYDR25TA78 PO
[2024-06-07] MEDS ORDERED: VANCOMYCIN 1G PREMIX 200 ML IV STA (09:10)
[2024-06-07 09:44] LABS: BASOPHILS % 0.7 % (0.0-2.0); EOSINOPHILS % 3.2 % (0.0-5.0); HEMOGLOBIN. 10.7 g/dL (12.0-16.0); LYMPHOCYTES % 14.8 % (20.0-50.0); MEAN CORPUSCULAR HEMOGLOBIN 29.7 pg (28.0-32.0); MEAN CORPUSCULAR HGB CONC 32.3 g/dL (31.0-37.0); MEAN CORPUSCULAR VOLUME 91.9 fL (81.0-99.0); MEAN PLATELET VOLUME 9.8 fl (7.4-10.4); MONOCYTES % 7.9 % (2.0-8.0); NEUTROPHILS % 73.4 % (40.0-76.0); PLATELET 132 x1000/uL (130-400); RED BLOOD CELL COUNT 3.59 mill/uL (4.2-5.4); RED CELL DISTRIBUTION WIDTH 16.5 % (11.6-14.6); WHITE BLOOD COUNT 5.8 x1000/uL (4.5-11.0)
[2024-06-07 09:48] LABS: INR 1.2; PROTHROMBIN TIME 12.8 sec (9.6-11.0)
[2024-06-07 09:50] LABS: CHLORIDE 99 mEq/L (98-107); POTASSIUM 5.2 mEq/L (3.5-5.1); SODIUM 139 mEq/L (136-145)
[2024-06-07 09:51] LABS: CARBON DIOXIDE 29 mEq/L (21-32)
[2024-06-07 09:52] LABS: CALCIUM 9.7 mg/dL (8.7-10.4)
[2024-06-07 09:56] LABS: GLUCOSE 208 mg/dL (70-105); LACTIC ACID 2.5 mmol/L (0.4-2.0)
[2024-06-07 09:57] LABS: TROPONIN I HIGH SENSITIVITY 28 ng/L (3.0-34); UREA NITROGEN BLOOD 55 mg/dL (9-23)
[2024-06-07] MEDS: SODIUM CHLORIDE 0.9% 1,000 ML IV ONE (09:57)
[2024-06-07] MEDS: ACETAMINOPHEN 650MG/20.3ML UDC PO ONE (09:57)
[2024-06-07] MEDS: PIPERACILLIN/TAZO 3.375G/50ML 50 ML IV STA (09:57)
[2024-06-07 09:58] LABS: ALANINE AMINOTRANSFERASE 14 IU/L (10-49); ALBUMIN 4.1 g/dL (3.2-4.8); ASPARTATE AMINOTRANSFERASE 19 IU/L (<34)
[2024-06-07 09:59] LABS: BILIRUBIN TOTAL 0.5 mg/dL (0.1-1.0); PROTEIN TOTAL 7.9 g/dL (6.0-8.3)
[2024-06-07 10:13] LABS: CREATININE 8.4 mg/dL (0.6-1.0)
[2024-06-07 12:24] LABS: TROPONIN I HIGH SENSITIVITY 41 ng/L (3.0-34)
[2024-06-07] MEDS: NOREPINEPHRINE 8MG/250ML PMX 250 ML IV ONE (12:51)
[2024-06-07] MEDS: VANCOMYCIN 1G PREMIX 200 ML IV NR (12:52)
[2024-06-07 14:52] LABS: HEPATITIS B SURFACE ANTIGEN NEGATIVE (Negative)
[2024-06-07] MEDS: ASPIRIN 325MG TABLET PO ONE (15:04)
[2024-06-07 15:12] LABS: HEPATITIS A AB IGM NEGATIVE (Negative)
[2024-06-07 15:13] LABS: HEPATITIS B CORE AB IGM NEGATIVE (Negative)
[2024-06-07 15:14] LABS: HEPATITIS C AB NON REACTIVE (Neg) (Negative)
[2024-06-07 16:00] VITALS: BP 128/67; PULSE 69; RESP 20; TEMP 36.6696; O2SAT 100
[2024-06-07 16:37] VITALS: BP 128/64; PULSE 69; RESP 20; TEMP 36.696
[2024-06-07] MEDS: INSULIN LISPRO 100 UNITS/ML SUBCUT SCH (17:45)
[2024-06-07] MEDS: BLOOD SUGAR DIAGNOSTIC STRIP TEST SCH (17:46)
[2024-06-07 18:00] VITALS: BP 128/74; PULSE 69; RESP 19; O2SAT 99
[2024-06-07 20:00] VITALS: BP 124/65; PULSE 68; RESP 16; TEMP 36.33624; O2SAT 99
[2024-06-07] MEDS: ATORVASTATIN CALCIUM 40MG TABLET PO SCH (21:43)
[2024-06-07 22:00] VITALS: BP 122/58; PULSE 71; RESP 19; O2SAT 98
[2024-06-07 22:12] LABS: EOSINOPHILS % 3.9 % (0.0-5.0); HEMATOCRIT. 31.5 % (36.0-48.0); LYMPHOCYTES % 21.1 % (20.0-50.0); MEAN CORPUSCULAR HEMOGLOBIN 29.4 pg (28.0-32.0); MEAN CORPUSCULAR HGB CONC 31.9 g/dL (31.0-37.0); MEAN CORPUSCULAR VOLUME 92.1 fL (81.0-99.0); MEAN PLATELET VOLUME 9.9 fl (7.4-10.4); MONOCYTES % 15.6 % (2.0-8.0); NEUTROPHILS % 58.4 % (40.0-76.0); PLATELET 116 x1000/uL (130-400); RED BLOOD CELL COUNT 3.42 mill/uL (4.2-5.4); RED CELL DISTRIBUTION WIDTH 16.7 % (11.6-14.6); WHITE BLOOD COUNT 5.4 x1000/uL (4.5-11.0)
[2024-06-07 22:15] LABS: POTASSIUM 5.4 mEq/L (3.5-5.1)
[2024-06-07 22:16] LABS: CALCIUM 9.3 mg/dL (8.7-10.4)
[2024-06-07 22:25] LABS: DIFFERENTIAL COMMENT 1
[2024-06-08] VITALS (20 sets, daily range): BP systolic 117–183; BP diastolic 54–90; PULSE 68–83; RESP 14–28; TEMP 36.16956–36.6696; O2SAT 96–100
[2024-06-08 05:44] LABS: CALCIUM 9.5 mg/dL (8.7-10.4); CHLORIDE 101 mEq/L (98-107); POTASSIUM 5.5 mEq/L (3.5-5.1); SODIUM 141 mEq/L (136-145)
[2024-06-08 05:45] LABS: CARBON DIOXIDE 31 mEq/L (21-32)
[2024-06-08 05:50] LABS: GLUCOSE 144 mg/dL (70-105); UREA NITROGEN BLOOD 64 mg/dL (9-23)
[2024-06-08 05:52] LABS: PHOSPHORUS 4.3 mg/dL (2.5-4.9)
[2024-06-08 06:14] LABS: CREATININE 9.5 mg/dL (0.6-1.0)
[2024-06-08 06:27] LABS: BASOPHILS % 1.3 % (0.0-2.0); EOSINOPHILS % 4.4 % (0.0-5.0); HEMATOCRIT. 31.3 % (36.0-48.0); HEMOGLOBIN. 10.1 g/dL (12.0-16.0); LYMPHOCYTES % 22.8 % (20.0-50.0); MEAN CORPUSCULAR HEMOGLOBIN 29.6 pg (28.0-32.0); MEAN CORPUSCULAR HGB CONC 32.4 g/dL (31.0-37.0); MEAN CORPUSCULAR VOLUME 91.2 fL (81.0-99.0); MEAN PLATELET VOLUME 8.6 fl (7.4-10.4); MONOCYTES % 13.1 % (2.0-8.0); NEUTROPHILS % 58.4 % (40.0-76.0); PLATELET 106 x1000/uL (130-400); RED BLOOD CELL COUNT 3.43 mill/uL (4.2-5.4); RED CELL DISTRIBUTION WIDTH 16.5 % (11.6-14.6); WHITE BLOOD COUNT 4.6 x1000/uL (4.5-11.0)
[2024-06-08] MEDS ORDERED: IPRATROPIUM/ALBUTEROL 0.5-3(2.5)MG/3ML NEB HHN PRN (09:00)
[2024-06-08] MEDS: SEVELAMER CARBONATE 800 MG TABLET PO SCH (09:34)
[2024-06-08] MEDS: FOLIC ACID/VITAMIN B COMP W-C TABLET PO SCH (09:34)
[2024-06-08] MEDS: INSULIN GLARGINE 100 UNITS/ML SUBCUT SCH (09:36)
[2024-06-08] MEDS ORDERED: CEFEPIME 1GM/50ML 50 ML IV SCH (10:00)
[2024-06-08] MEDS: CEFEPIME 1GM/50ML 50 ML IV SCH (10:34)
[2024-06-08] MEDS: DIPHENHYDRAMINE 25MG CAPSULE PO NR (15:18)
[2024-06-08] MEDS: DEXTROSE 50% WATER 50ML SYRINGE IV PRN (17:19)
[2024-06-08] MEDS ORDERED: APIXABAN 5 MG TABLET PO SCH (19:00)
[2024-06-08] MEDS ORDERED: PHENYTOIN SODIUM EXTENDED 100MG CAPSULE PO SCH (21:00)
[2024-06-08] MEDS ORDERED: ATORVASTATIN CALCIUM 10MG TABLET PO SCH (21:00)
[2024-06-08] MEDS: VANCOMYCIN 750MG/150ML (BAXTER) IV NR (21:09)
[2024-06-08] MEDS: LEVETIRACETAM 500MG TABLET PO SCH (21:10)
[2024-06-08] MEDS: ENOXAPARIN 30MG/0.3ML SYR SUBCUT SCH (21:10)
[2024-06-08] MEDS: IPRATROPIUM/ALBUTEROL 0.5-3(2.5)MG/3ML NEB HHN SCH (21:28)
[2024-06-09] VITALS (19 sets, daily range): BP systolic 103–162; BP diastolic 51–71; PULSE 78–94; RESP 15–27; TEMP 36.55848–36.78072; O2SAT 98–100
[2024-06-09 05:54] LABS: BASOPHILS % 0.8 % (0.0-2.0); EOSINOPHILS % 3.3 % (0.0-5.0); HEMATOCRIT. 30.2 % (36.0-48.0); HEMOGLOBIN. 9.9 g/dL (12.0-16.0); LYMPHOCYTES % 17.1 % (20.0-50.0); MEAN CORPUSCULAR HGB CONC 32.7 g/dL (31.0-37.0); MEAN CORPUSCULAR VOLUME 91.8 fL (81.0-99.0); MEAN PLATELET VOLUME 8.5 fl (7.4-10.4); MONOCYTES % 11.6 % (2.0-8.0); NEUTROPHILS % 67.2 % (40.0-76.0); PLATELET 106 x1000/uL (130-400); RED BLOOD CELL COUNT 3.29 mill/uL (4.2-5.4); RED CELL DISTRIBUTION WIDTH 16.6 % (11.6-14.6); WHITE BLOOD COUNT 4.4 x1000/uL (4.5-11.0)
[2024-06-09 06:03] LABS: CARBON DIOXIDE 29 mEq/L (21-32); CHLORIDE 102 mEq/L (98-107); POTASSIUM 4.3 mEq/L (3.5-5.1); SODIUM 140 mEq/L (136-145)
[2024-06-09 06:04] LABS: CALCIUM 8.9 mg/dL (8.7-10.4)
[2024-06-09 06:09] LABS: GLUCOSE 214 mg/dL (70-105); UREA NITROGEN BLOOD 35 mg/dL (9-23)
[2024-06-09 06:11] LABS: PHOSPHORUS 3.4 mg/dL (2.5-4.9)
[2024-06-09 06:19] LABS: CREATININE 6.8 mg/dL (0.6-1.0)
[2024-06-10] VITALS (24 sets, daily range): BP systolic 121–157; BP diastolic 57–92; PULSE 81–98; RESP 16–27; TEMP 36.28068–36.89184; O2SAT 96–100
[2024-06-10] MEDS ORDERED: METO25TA6 PO (20:18)
[2024-06-10] MEDS: DIPHENHYDRAMINE 50MG CAPSULE PO NR (20:59)
[2024-06-10] MEDS ORDERED: METOPROLOL TARTRATE 25MG TABLET PO SCH (21:00)
[2024-06-11] VITALS (13 sets, daily range): BP systolic 114–142; BP diastolic 56–97; PULSE 79–99; RESP 15–24; TEMP 36.114–36.89184; O2SAT 97–100
[2024-06-11] MEDS: ACETAMINOPHEN 325MG TABLET PO PRN (09:21)
[2024-06-11] MEDS: VANCOMYCIN 750MG PREMIX 150 ML IV SCH (11:10)
[2024-06-19 13:08] LABS: OVA & PARASITE EXAM Final report (.)
== END 2024-06-11 19:07 | disposition home health service (06) | DRG 871 ==
LOC: ER 08:42 → EDBEDREQ 11:46 → 5EST 12:03 → EDBEDREQSVC 12:07
PROVIDERS: ADMIT Internal Medicine; ATTEND Internal Medicine
PROC: 5A1D70Z Performance of Urinary Filtration, Intermittent, Less than 6 Hours Per Day (ICD-10-PCS; principal; 2024-06-08)
PROC: 5A1D70Z Performance of Urinary Filtration, Intermittent, Less than 6 Hours Per Day (ICD-10-PCS; 2024-06-10)
DX: A41.9 Sepsis, unspecified organism (principal); J18.9 Pneumonia, unspecified organism; J96.01 Acute respiratory failure with hypoxia; N18.6 End stage renal disease; R65.21 Severe sepsis with septic shock; A04.72 Enterocolitis due to Clostridium difficile, not specified as recurrent; I12.0 Hypertensive chronic kidney disease with stage 5 chronic kidney disease or end stage renal disease; I69.354 Hemiplegia and hemiparesis following cerebral infarction affecting left non-dominant side; J90 Pleural effusion, not elsewhere classified; Z20.822 Contact with and (suspected) exposure to COVID-19; E11.22 Type 2 diabetes mellitus with diabetic chronic kidney disease; E78.5 Hyperlipidemia, unspecified; E87.5 Hyperkalemia; G40.909 Epilepsy, unspecified, not intractable, without status epilepticus; J84.10 Pulmonary fibrosis, unspecified; R79.89 Other specified abnormal findings of blood chemistry; N80.9 Endometriosis, unspecified; D63.8 Anemia in other chronic diseases classified elsewhere; Z79.01 Long term (current) use of anticoagulants; Y95 Nosocomial condition; Z79.899 Other long term (current) drug therapy; Z99.2 Dependence on renal dialysis; Z99.81 Dependence on supplemental oxygen; Z82.49 Family history of ischemic heart disease and other diseases of the circulatory system
CPT/HCPCS: 36415; 71045; 71250; 74176; 80048; 80053; 80061; 82962; 83036; 83605; 83735; 84100; 84145; 84484; 85025; 86705; 86709; 87015; 87045; 87177; 87209; 87340; 87426; 87427; 87449; 90935; 93005; 94640; 97162; 97530; 99291; J0692; J1650; J1815; J2543; J3370; J3490; J7030; Q0163